=== PATIENT | female | born 1995 | race Caucasian/White ===

== ENCOUNTER 2017-05-22 12:24 | Emergency (ER) | payer OTHER ==
[~2017-05-22] VITALS: Ht 154.9 cm; Wt 109.1 kg
[2017-05-22] MEDS ORDERED: CIPR500T19 PO (12:44)
[2017-05-22] MEDS ORDERED: KETOROLAC 30 MG/ML VIAL (J1885) IV ONE (13:00)
[2017-05-22] MEDS ORDERED: NS 1,000 ML IV ONE (13:00)
[2017-05-22] MEDS ORDERED: ONDANSETRON 4MG/2ML VIAL (J2405) IV ONE (13:15)
[2017-05-22 13:33] LABS: BASO % 0.4 % (0.0-1.0); EOS # 0.1 K/mm3 (0.0-0.50); LARGE UNSTAINED CELL # 0.1 K/mm3 (0.0-0.4); LARGE UNSTAINED CELL % 0.9 % (0.0-4.0); LYMPH # 1.9 K/mm3 (1.5-6.5); LYMPH % 17.8 % (24.0-44.0); MEAN CORPUSCULAR HEMOGLOBIN 30.5 pg (27.0-33.0); MEAN CORPUSCULAR HGB CONC 33.9 g/dl (32.0-36.5); MEAN CORPUSCULAR VOLUME 90.1 fl (80.0-96.0); MONO # 0.4 K/mm3 (0.0-0.8); MONO % 4.3 % (0.0-5.0); NEUTROPHILS # 7.4 K/mm3 (1.8-7.7); NEUTROPHILS % 75.5 % (36.0-66.0); PLATELET COUNT, AUTOMATED 367 k/mm3 (150-450); RED CELL DISTRIBUTION WIDTH 12.2 % (11.5-14.5); WHITE BLOOD COUNT 9.8 K/mm3 (4.0-10.0)
[2017-05-22 13:40] LABS: ANION GAP 7 MEQ/L (8-16); BLOOD UREA NITROGEN 9 MG/DL (7-18); CALCIUM LEVEL 9.2 MG/DL (8.5-10.1); CARBON DIOXIDE LEVEL 27 MEQ/L (21-32); CHLORIDE LEVEL 107 MEQ/L (98-107); CREATININE FOR GFR 0.87 MG/DL (0.55-1.02); GLOMERULAR FILTRATION RATE > 60.0 (>60); GLUCOSE, FASTING 96 MG/DL (70-105); POTASSIUM SERUM 4.1 MEQ/L (3.5-5.1); SODIUM LEVEL 141 MEQ/L (136-145)
[2017-05-22 14:15] LABS: ERYTHROCYTE SEDIMENTATION RATE 22 mm/hr (0-20)
[2017-05-22] MEDS ORDERED: [UNRECOGNIZED DRUG - CODE] TOP (14:24)
[2017-05-22] MEDS ORDERED: ULTR50TA8 PO (14:25)
[2017-05-22 14:31] VITALS: BP 123/68
== END 2017-05-22 14:34 | disposition home or self-care (01) ==
LOC: M ED 12:24
DX: H61.21 Impacted cerumen, right ear (principal); E66.9 Obesity, unspecified; Z88.0 Allergy status to penicillin; Z91.041 Radiographic dye allergy status; Z91.010 Allergy to peanuts; Z91.89 Other specified personal risk factors, not elsewhere classified; Z88.1 Allergy status to other antibiotic agents
CPT/HCPCS: 80048; 81025; 83605; 85025; 85652; 86140; 96374; 96375; 99283; J1885; J2405

== ENCOUNTER 2017-07-18 17:22 | Emergency (ER) | payer OTHER ==
[~2017-07-18] VITALS: Ht 154.9 cm; Wt 109.5 kg
[~2017-07-18 17:22] MED LIST: CIPR500T19 PO; ULTR50TA8 PO; [UNRECOGNIZED DRUG - CODE] TOP
[2017-07-18] MEDS ORDERED: IBUP200C10 PO (17:35)
[2017-07-18] MEDS ORDERED: MEDR1VL IM (17:35)
[2017-07-18 19:24] VITALS: BP 134/66
--- NOTE | 2017-07-19 13:20 | REP ---
LEFT RIB SERIES: Five views of the left ribs are performed and demonstrate no fracture or bone lesion. An accompanying PA view of the chest demonstrates no acute infiltrate or pneumothorax. The heart is normal in size. IMPRESSION: Negative left rib series. Signed by Ervin Garcia MD 07/19/2017 07:13 P
--- NOTE | 2017-07-19 13:20 | REP ---
LEFT SHOULDER, THREE VIEWS: There is no evidence of an acute fracture, dislocation or intrinsic bone disease. IMPRESSION: No fracture or dislocation. Signed by Ervin Garcia MD 07/19/2017 07:13 P
== END 2017-07-18 19:35 | disposition home or self-care (01) ==
LOC: M ED 17:22
DX: S43.402A Unspecified sprain of left shoulder joint, initial encounter (principal); S20.212A Contusion of left front wall of thorax, initial encounter; W50.0XXA Accidental hit or strike by another person, initial encounter; Y92.9 Unspecified place or not applicable; Y93.9 Activity, unspecified; Y99.0 Civilian activity done for income or pay; Z79.3 Long term (current) use of hormonal contraceptives; Z88.0 Allergy status to penicillin; Z88.1 Allergy status to other antibiotic agents; Z91.89 Other specified personal risk factors, not elsewhere classified; Z91.010 Allergy to peanuts; Z91.041 Radiographic dye allergy status

== ENCOUNTER 2017-08-16 09:07 | Emergency (ER) | payer OTHER ==
[~2017-08-16] VITALS: Ht 154.9 cm; Wt 109.1 kg
[~2017-08-16 09:07] MED LIST changes: +IBUP200C10 PO; +MEDR1VL IM
[2017-08-16] MEDS ORDERED: TYLE325T5 PO (09:18)
[2017-08-16] MEDS ORDERED: KETOROLAC 60 MG/2 ML VIAL (J1885) IM ONE (09:45)
[2017-08-16] MEDS ORDERED: KETO10TAB PO (10:15)
[2017-08-16 10:22] VITALS: BP 130/93
== END 2017-08-16 10:24 | disposition home or self-care (01) ==
LOC: M ED 09:07
DX: R07.89 Other chest pain (principal); H91.91 Unspecified hearing loss, right ear; Z82.49 Family history of ischemic heart disease and other diseases of the circulatory system; Z83.49 Family history of other endocrine, nutritional and metabolic diseases; Z80.9 Family history of malignant neoplasm, unspecified; Z79.3 Long term (current) use of hormonal contraceptives; Z88.0 Allergy status to penicillin; Z88.1 Allergy status to other antibiotic agents; Z91.041 Radiographic dye allergy status; Z91.010 Allergy to peanuts; Z91.89 Other specified personal risk factors, not elsewhere classified
CPT/HCPCS: 36415; 85379; 96372; 99284; J1885

== ENCOUNTER → 2017-12-03 | Outpatient (CLI) | payer OTHER ==
[2017-12-03 10:53] LABS: ALBUMIN 3.9 GM/DL (3.2-5.2); ALBUMIN/GLOBULIN RATIO 1.18 (1.00-1.93); ALKALINE PHOSPHATASE 164 U/L (45-117); ALT/SGPT 17 U/L (12-78); ANION GAP 5 MEQ/L (8-16); AST/SGOT 12 U/L (7-37); BILIRUBIN,TOTAL 0.4 MG/DL (0.2-1.0); BLOOD UREA NITROGEN 10 MG/DL (7-18); CARBON DIOXIDE LEVEL 29 MEQ/L (21-32); CHLORIDE LEVEL 107 MEQ/L (98-107); CREATININE FOR GFR 0.68 MG/DL (0.55-1.30); GLOMERULAR FILTRATION RATE > 60.0 (>60); GLUCOSE, FASTING 83 MG/DL (70-100); POTASSIUM SERUM 4.5 MEQ/L (3.5-5.1); SODIUM LEVEL 141 MEQ/L (136-145); TOTAL PROTEIN 7.2 GM/DL (6.4-8.2)
== END ==
LOC: M LAB 08:21
DX: R10.13 Epigastric pain (principal)
CPT/HCPCS: 76705

== ENCOUNTER → 2017-12-25 | Outpatient (CLI) | payer OTHER | LOC: M RAD 07:20 | DX: R10.13 Epigastric pain (principal) | CPT/HCPCS: J2805 ==

== ENCOUNTER → 2018-06-02 | Outpatient (CLI) | payer OTHER ==
[2018-06-02 16:38] LABS: CREATININE FOR GFR 0.83 MG/DL (0.55-1.30); GLOMERULAR FILTRATION RATE > 60.0 (>60)
[2018-06-02 16:38] LABS: BLOOD UREA NITROGEN 11 MG/DL (7-18)
== END ==
LOC: M WUC 14:23
DX: H90.11 Conductive hearing loss, unilateral, right ear, with unrestricted hearing on the contralateral side (principal)
CPT/HCPCS: 82565

== ENCOUNTER 2019-07-16 20:05 | Emergency (ER) | payer OTHER ==
[~2019-07-16] VITALS: Ht 152.4 cm; Wt 109.9 kg
[2019-07-16 20:05] VITALS: BP 128/78
[~2019-07-16 20:05] MED LIST changes: -IBUP200C10 PO; +IBUP200C25 PO; +KETO10TAB PO; +TYLE325T5 PO
[2019-07-16] MEDS ORDERED: NEXP1IMP SC (20:13)
[2019-07-16] MEDS ORDERED: CLEO300C2 PO (20:54)
[2019-07-16] MEDS ORDERED: BENZOCAINE 20% GEL 9GM TUBE (ANBESOL MAX STRENGTH) TOP ONE (21:00)
[2019-07-16] MEDS ORDERED: CLINDAMYCIN 150 MG CAP PO ONE (21:00)
== END 2019-07-16 21:10 | disposition home or self-care (01) ==
LOC: M ED 20:05
DX: K02.9 Dental caries, unspecified (principal); K08.89 Other specified disorders of teeth and supporting structures; Z88.1 Allergy status to other antibiotic agents; Z91.010 Allergy to peanuts; Z91.041 Radiographic dye allergy status; Z91.09 Other allergy status, other than to drugs and biological substances; Z79.899 Other long term (current) drug therapy

== ENCOUNTER 2019-07-18 01:50 | Emergency (ER) | payer OTHER ==
[~2019-07-18] VITALS: Ht 152.4 cm; Wt 109.5 kg
[~2019-07-18 01:50] MED LIST changes: +CLEO300C2 PO; +NEXP1IMP SC
[2019-07-18] MEDS: ARTICAINE HCL/EPINEPHRINE 4%-1:200,000 1.7ML INJ (SEPTOCAINE) SM ONE (02:42)
[2019-07-18] MEDS: BENZOCAINE 20% GEL 9GM TUBE (ANBESOL MAX STRENGTH) TOP ONE (02:42)
[2019-07-18] MEDS ORDERED: NAPR-837 PO (02:57)
[2019-07-18] MEDS: KETOROLAC 60 MG/2 ML VIAL (J1885) IM ONE (03:07)
[2019-07-18 03:25] VITALS: BP 133/86
== END 2019-07-18 03:26 | disposition home or self-care (01) ==
LOC: M ED 01:50
DX: K08.89 Other specified disorders of teeth and supporting structures (principal); M26.609 Unspecified temporomandibular joint disorder, unspecified side; Z91.041 Radiographic dye allergy status; Z88.1 Allergy status to other antibiotic agents; Z88.0 Allergy status to penicillin; Z91.010 Allergy to peanuts; Z91.048 Other nonmedicinal substance allergy status

== ENCOUNTER 2020-09-27 18:06 | Emergency (ER) | payer OTHER ==
[~2020-09-27] VITALS: Ht 144.8 cm; Wt 100.8 kg
[~2020-09-27 18:06] MED LIST changes: +NAPR-837 PO
[2020-09-27] MEDS ORDERED: ALPRAZolam 0.25 MG TAB PO ONE (19:45)
[2020-09-27 20:23] VITALS: BP 121/75
== END 2020-09-27 20:24 | disposition home or self-care (01) ==
LOC: M ED 18:06
DX: F43.9 Reaction to severe stress, unspecified (principal); Z91.010 Allergy to peanuts; Z88.1 Allergy status to other antibiotic agents; Z88.8 Allergy status to other drugs, medicaments and biological substances